=== PATIENT | female | born 1995 | race Caucasian/White ===

== ENCOUNTER 2017-03-29 22:27 | Emergency (ER) | payer MEDICAID ==
[~2017-03-29] VITALS: Ht 170.2 cm; Wt 81.6 kg
[2017-03-29 22:48] VITALS: BP_SYST 121
[2017-03-29] MEDS ORDERED: KETOROLAC TROMETHAMINE 60 MG/2 ML VIAL IM ONE (23:45)
[2017-03-30 00:38] VITALS: BP_SYST 130
== END 2017-03-30 00:38 | disposition home or self-care (01) ==
LOC: SED 22:27
DX: G89.29 Other chronic pain (principal); M25.551 Pain in right hip; Z88.1 Allergy status to other antibiotic agents
CPT/HCPCS: 96372; 99283; J1885